=== PATIENT | female | born 1990 | race American Indian/Alaskan Native ===

== ENCOUNTER 2019-03-11 21:06 | Emergency (ER) | payer BC ==
[2019-03-11 21:33] VITALS: BP 137/83
--- NOTE | 2019-03-11 21:33 | Event Note ---
ED Screening Note ED Screening Note: pt presents with right hand and right ankle pain that began 3 days ago no fall or injury no numbness or weakness no PMHx no allergies to meds states she has irregular menstrual cycles
--- NOTE | 2019-03-11 21:35 | Emergency Department Report ---
Chief Complaint: Extremity Problem,Nontraumatic Stated Complaint: HAND/ANKLE PAIN Time Seen by Provider: 03/11/19 21:29 - HPI History of Present Illness: pt presents with right hand and right ankle pain that began 3 days ago no fall or injury no numbness or weakness no edema no erythema has not taken anything for her discomfort on exam: no TTP of the right wrist, right hand, right fingers 2+ radial pulse, sensation intact FROM of the right wrist, hand, fingers without difficulty no edema no joint laxity no TTP of the right ankle, right foot, or right toes no edema, no joint laxity, neurovascularly intact FROM of the right ankle, right foot, and right toes no PMHx no allergies to meds states she has irregular menstrual cycles advised pt may take ibuprofen every 8 hours as needed for pain. may use ice for 15 minutes at a time, elevation, and rest. follow up with an orthopedic doctor in the next 3-5 days. return to the emergency room for any new or worsening symptoms. MSE screening note: Focused history and physical exam performed. ED Disposition for MSE Clinical Impression: Right hand pain, Right foot pain Disposition: Z-07 MED SCREENING EXAM-LEFT Is pt being admited?: No Does the pt Need Aspirin: No Condition: Stable Instructions: Arthralgia (ED), RICE Therapy (ED) Additional Instructions: may take ibuprofen every 8 hours as needed for pain. may use ice for 15 minutes at a time, elevation, and rest. follow up with an orthopedic doctor in the next 3-5 days. return to the emergency room for any new or worsening symptoms. Referrals: JUAN NUÑEZ MD [Staff Physician] - 3-5 Days [facility] [Provider Group] - 3-5 Days Time of Disposition: 21:33 Print Language: LATVIAN
== END 2019-03-11 22:15 | disposition left against medical advice (07) ==
LOC: ED 21:06
DX: M25.571 Pain in right ankle and joints of right foot (principal)
CPT/HCPCS: 99282

== ENCOUNTER 2021-01-09 21:07 | Emergency (ER) | payer BC ==
[2021-01-10 01:12] VITALS: BP 154/86
--- NOTE | 2021-01-10 01:27 | Event Note ---
ED Screening Note Date of service: 01/10/21 Time: : ED Screening Note: 30-year-old morbid obese -[place] female presents to the emergency room complaining of vaginal bleeding with clots. Patient states that she has seen a SENIOR VICE PRESIDENT before and they placed her on medication but did not work. Patient reports that she feels a little dizziness. This initial assessment/diagnostic orders/clinical plan/treatment(s) is/are subject to change based on patients health status, clinical progression and re- assessment by fellow clinical providers in the ED. Further treatment and workup at subsequent clinical providers discretion. Patient/guardian urged not to elope from the ED as their condition may be serious if not clinically assessed and managed. Initial orders include:
[2021-01-10 01:53] LABS: Basophils # (Auto) 0.1 K/mm3 (0.0-0.1); Basophils % (Auto) 0.6 % (0.0-1.8); Eosinophils # (Auto) 0.1 K/mm3 (0.0-0.4); Eosinophils % (Auto) 0.7 % (0.0-4.3); Hematocrit 29.3 % (30.3-42.9); Hemoglobin 10.1 gm/dl (10.1-14.3); Lymphocytes # (Auto) 3.5 K/mm3 (1.2-5.4); Lymphocytes % (Auto) 38.7 % (13.4-35.0); Mean Corpuscular HGB Conc 35 % (30-34); Mean Corpuscular Volume 79 fl (79-97); Monocytes # (Auto) 0.4 K/mm3 (0.0-0.8); Monocytes % (Auto) 4.2 % (0.0-7.3); Platelet Count 335 K/mm3 (140-440); Red Blood Count 3.69 M/mm3 (3.65-5.03); Red Cell Distribution Width 15.7 % (13.2-15.2)
--- NOTE | 2021-01-10 02:19 | Emergency Department Report ---
ED Female HPI - General Chief complaint: Vaginal Bleeding Stated complaint: VAGINAL BLEEDING/CLOTS Time Seen by Provider: 01/10/21 02:14 Source: patient Mode of arrival: Ambulatory Limitations: No Limitations - History of Present Illness Initial comments: 30-year-old morbid obese -Serbian female presents to the emergency room complaining of vaginal bleeding with clots. Patient states that she has seen a MICA MACHINE OPERATOR before and they placed her on medication but did not work. Patient reports that she feels a little dizziness. MD Complaint: vaginal bleeding Severity scale (0 -10): 0 Worsens with: menstrual period Are you Now?: No - Related Data Allergies Allergy/AdvReac Type Severity Reaction Status Date / Time No Known Allergies Allergy Unverified 03/11/19 21:33 ED Review of Systems ROS: Stated complaint: VAGINAL BLEEDING/CLOTS Other details as noted in HPI Comment: All other systems reviewed and negative ED Past Medical Hx - Past Medical History Previous Medical History?: No Additional medical history: Morbid Obesity - Surgical History Past Surgical History?: Yes Additional Surgical History: Right ankle sprain - Social History Smoking Status: Never Smoker ED Physical Exam - General Limitations: No Limitations General appearance: alert, in no apparent distress, obese - Head Head exam: Present: atraumatic, normocephalic - Eye Eye exam: Present: normal appearance - ENT ENT exam: Present: normal external ear exam - Neck Neck exam: Present: normal inspection, full ROM - Respiratory Respiratory exam: Absent: accessory muscle use - Cardiovascular Cardiovascular Exam: Present: regular rate - GI/Abdominal GI/Abdominal exam: Present: soft. Absent: distended - Extremities Exam Extremities exam: Present: normal inspection, full ROM - Back Exam Back exam: Present: normal inspection, full ROM - Neurological Exam Neurological exam: Present: alert, oriented X3, normal gait - Psychiatric Psychiatric exam: Present: normal affect, normal mood - Skin Skin exam: Present: warm, dry, intact, normal color. Absent: rash ED Course Vital Signs 01/10/21 01:09 Temperature 98.5 F Pulse Rate 70 Respiratory 16 Rate Blood Pressure 154/86 O2 Sat by Pulse 99 Oximetry ED Medical Decision Making - Lab Data Result diagrams: 01/10/21 01:35 - Medical Decision Making 30-year-old morbid obese -Serbian female presents to the emergency room complaining of vaginal bleeding with clots. Patient states that she has seen a MICA MACHINE OPERATOR before and they placed her on medication but did not work. Patient reports that she feels a little dizziness. Patient CBC is stable no signs of anemia. hCG is negative. Patient is to follow-up with her MICA MACHINE OPERATOR. Critical care attestation.: If time is entered above; I have spent that time in minutes in the direct care of this critically ill patient, excluding procedure time. ED Disposition Clinical Impression: Heavy menstrual period Disposition: TO HOME OR SELFCARE Is pt being admited?: No Does the pt Need Aspirin: No Condition: Stable Instructions: Metrorrhagia, [id number] Additional Instructions: Blood work shows no anemia. Negative test. Recommend for you to follow-up with a MICA MACHINE OPERATOR. Referrals: [facility] [Provider Group] - 3-5 Days [facility] [Provider Group] - 3-5 Days Forms: Work/School Release Form(ED)
== END 2021-01-10 02:30 | disposition home or self-care (01) ==
LOC: ED 21:07
DX: N92.0 Excessive and frequent menstruation with regular cycle (principal)
CPT/HCPCS: 36415; 84703; 85025; 99283